=== PATIENT | female | born 1995 | race Caucasian/White ===

== ENCOUNTER 2017-02-01 21:42 | Emergency (ER) | payer OTHER ==
--- NOTE | 2017-02-01 22:25 | ERNOTE ---
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 SAYS SHE IS 12 WEEKS . STATES SHE HAD EPISODE OF VAGINAL BLEEDING AT 6 WEEKS THAT RESOLVED . SHE IS FOLLOWED BY SR CARRILLO. SHE HAS HAD PRIOR ULTRASOUND IN HIS OFFICE. SHE WAS TOLD IT WAS NORMAL. SHE HAS HAD NO CRAMPS OR CLOTS OR TISSUE PASSED. SHE IS , SAB 1. LAST PREG IN 2014. DENIES ANY MEDICAL PROBLEMS. Timing: Present: gone now Quality: Present: mild Onset Location: Present: vaginal Radiation: Present: none Activities at Onset: Present: none Sexual Hamel History: Present: single partner Review of Systems - Review of Systems Constitutional: Present: See HPI All Other Systems: All systems neg except as marked - Patient's Past Medical History Patient History - Cardiac/Respiratory: No pertinent hx Patient History - Cancer: No Hx of Cancer Patient History - Surgical Procedures: Cholecystectomy Patient History - Other: None LMP (females 10-50): G4, P2, SAB 1 LMP (Calendar): 11/09/16 - Family History Father Family History - Medical: Diabetes Type 2 - Social History Living Situations: home Smoking Status: Current every day smoker Patient requests Smoking Cessation Consult: No Initiate information on Smoking Cessation: No Alcohol Use: none Drug Use: marijuana - POSITIVWE SCREEN 12/29/2016 - Immunizations Immunizations Up to Date: Yes History of Influenza Vaccine: No Physical Exam - Physical Exam General Appearance: Present: wd/wn, alert, no apparent distress Gastrointestinal/Abdominal: Present: normal bowel sounds, nontender, nondistended, soft, no organomegaly Back Exam: Present: normal inspection, normal range of motion, no CVA tenderness , no vertebral tenderness Neurological Exam: Present: alert, oriented, normal mood/affect Skin Exam: Present: normal color, warm/dry Pelvic Exam: Present: other - THE PT HAS A SLIT LIKE OS WITH A SMALL AMOUNT OF REDDISH BROWN BLOOD IN VAGINA BUT NO BRIGHT RED BLOOD . AND NO TISSUE OR CLOTS. ED Progress - Date and Time Seen: Date and Time: 02/01/17 22:58 CONSULTED [facility] DR CARRILLO. HE COULD NOT REMEMBER PT'S OLD US RESULTS BUT WITH HER CURRENT FINDING DID NOT BELIEVE REPEAT US WAS NEEDED. HE WILL FOLLOW IN THE OFFICE. - Results and Orders Patient's Lab Results:: I have reviewed the patient's lab results. Results and Orders: LABS ARE NORMAL - Vital Signs Vital Signs: Vital Signs 02/01/17 21:45 Temperature 36.5 C Pulse Rate 90 Respiratory 18 Rate Blood Pressure 112/68 O2 Sat by Pulse 100 Oximetry - Progress/Reassessment Chief Complaint: Genitourinary Problem Progress:: Improved - SAYS ON A LITTLE SPOT OF BLOOD SINCE HERE. Departure Clinical Impression: Threatened miscarriage in early - Departure Disposition: Home Follow Up Needed Condition: Good Instructions: Threatened Miscarriage, [id number] Additional Instructions: YOUR DR IS AWARE OF THE BLEEDING AND FINDING OF HEART TONES. FOLLOW UP WITH THE OFFICE TO SEE IF OR WHEN HE WANT TO DO A RECHECK. Referrals: Sarwat Carrillo DO [Primary Care Provider] -
--- OUTSIDE RECORDS SUMMARY | 2017-02-01 22:33 | XMS REPORT | Continuity of Care Document ---
:1995 Author Organization [facility] ([facility]) Address [address] [address] Phone [phone] Care Team Providers Name Role Phone LeelaPanfilo ruiz Primary Care Provider [phone] Source Comments This disclosure is being made pursuant to the Care Everywhere program, applicable federal and state laws, and may not contain all informaitonavailable regarding this patient.[facility] ([facility]) Active Allergies and Adverse Reactions No Known Allergies Current Medications No known medications Active Problems Problem Noted Date Symptomatic cholelithiasis 07/27/2012 24 weeks gestation of 07/27/2012 Currently Estimated Date of Delivery Comments Yes Social History Tobacco Use Types Packs/Day Years Used Date Current Every Day Smoker Cigarettes 0.5 1 Alcohol Use Drinks/Week oz/Week Comments No Last Filed Vital Signs Vital Sign Reading Time Taken Blood Pressure 121/69 07/27/2012 1:15 PM CDT Pulse 80 07/27/2012 1:15 PM CDT Temperature 36.6 C (97.9 F) 07/27/2012 1:15 PM CDT Respiratory Rate - - Height 1.64 m (5' 4.57") 07/27/2012 1:15 PM CDT Weight 64.1 kg (141 lb 5 oz) 07/27/2012 1:15 PM CDT Body Mass Index 23.83 07/27/2012 1:15 PM CDT Oxygen Saturation - - Plan of Care Health Maintenance Due Date Last Done Comments Hepatitis B Vaccine (1 of 3 - Primary Series) 1995 HPV Vaccine (1 of 3 - Female/Unknown 3 Dose Series) 2006 Tdap Vaccine 2006 Meningococcal Vaccine (1 of 1) 2011 Cervical Cancer Screening 2013 Lipid Disorder Screening 2013 MMR Vaccine 2013 Td Vaccine 2013 Varicella Vaccine (1 of 2 - Adult - No Evidence of 2013 Immunity) Pneumococcal Vaccine (1 of 1 - PPSV23) 2014 Influenza Vaccine: Seasonal (#1) 06/02/2016 Results from Last 3 Months Not on file
[2017-02-01 22:49] LABS: Hematocrit 39.3 % (37.0-47.0); Hemoglobin 13.6 gm/dL (12.5-16.0); Mean Cell Volume 88.5 fl (78-100); Mean Corpuscular Hemoglobin 30.6 pg (27-31); Mean Corpuscular Hgb Conc 34.6 g/dl (32-36); Mean Platelet Volume 8.7 fl (6.0-9.5); Neutrophil # 5.1 K/mm3 (1.3-6.0); Neutrophil % 51.2 % (42-75.0); Platelet Count 314 K/mm3 (150-450); Red Blood Count 4.44 M/mm3 (4.2-5.4); Red Cell Distribution Width 11.3 % (11.5-14.0); White Blood Count 9.9 K/mm3 (4.0-10.5)
[2017-02-02 00:37] VITALS: BP 126/64
== END 2017-02-02 00:35 | disposition home or self-care (01) ==
LOC: ER 21:42
DX: O20.0 Threatened abortion (principal); Z3A.12 12 weeks gestation of pregnancy; F17.200 Nicotine dependence, unspecified, uncomplicated

== ENCOUNTER 2017-08-15 08:57 | Inpatient (IN) | payer OTHER ==
[2017-08-15] MEDS ORDERED: PENICILLIN G POTASSIUM 5 MILLIONUNT in DEXTROSE 5 % IN WATER 100 ML IV ONE ×2 (09:02)
[2017-08-15] MEDS ORDERED: RINGER'S SOLUTION,LACTATED 1,000 ML IV ONE (09:02)
[2017-08-15] MEDS ORDERED: OXYTOCIN/DEXTROSE 5%-WATER 30 UNITS/500 ML BAG IV ONE ×2 (09:02→14:34)
[2017-08-15] MEDS ORDERED: DEXTROSE 5%-LACTATED RINGERS 1,000 ML IV PRN (09:02)
[2017-08-15] MEDS ORDERED: LIDOCAINE HCL 50 ML VIAL PERI PRN (09:02)
[2017-08-15] MEDS ORDERED: FLU VACC QS2017-18(6MOS UP)/PF 60 MCG/0.5 ML SYRINGE IM ONE ×2 (09:07→19:13)
[2017-08-15 09:21] LABS: Cocaine Ur Negative (NEGATIVE); Urine Barbiturate Negative (NEGATIVE); Urine Benzodiazepines Negative (NEGATIVE); Urine Opiates Negative (NEGATIVE); Urine PCP Negative (NEGATIVE); Urine THC Negative (NEGATIVE)
[2017-08-15] MEDS ORDERED: ONDANSETRON HCL/PF 2 MG/ML VIAL IV PRN (10:03)
[2017-08-15] MEDS ORDERED: NALOXONE HCL 1 MG/1 ML SYRG IV PRN (10:03)
[2017-08-15] MEDS ORDERED: BUPIVACAINE HCL/0.9 % NACL/PF 250 ML EP PRN (10:03)
[2017-08-15] MEDS ORDERED: BUPIVACAINE HCL/PF 30 ML VIAL EP SCH (10:15)
--- NOTE | 2017-08-15 10:25 | OR ---
Anesthesia Procedure Note - Anesthesia Procedure Note Date of Service: 08/15/17 Narrative: Vital Signs - Last Taken Temp 36.9 C 08/15/17 10:22 Pulse 84 08/15/17 10:22 Resp 18 08/15/17 10:22 BP 129/76 08/15/17 10:22 Pulse Ox 99 08/15/17 10:22 08/15/17 10:24 ANESTHESIA PROCEDURE NOTE Date of Procedure: 08/15/2017. Time of procedure: 1005. Performed by: Niko Cervantes CRNA Platen Press Operator: None. Preprocedure diagnosis: Active labor. Post procedure diagnosis: Same. Procedure: Insertion of labor epidural. Indications: The patient is a 22 -year-old female in active labor requesting labor epidural for pain management. Findings: See below. Details of the procedure: The patient was placed in a sitting position. DuraPrep as well as Betadine swabs X3 was applied to the patient's back. Patient was then draped in a sterile fashion. Lidocaine 1% was infiltrated to the skin and subcutaneous tissues at the level of the L3-4 interspace. The epidural space was identified using a 18-gauge Tuohy needle with loss-of- resistance technique. Epidural catheter was inserted to a depth of 10 centimeters at skin. Negative test dose was elicited using 3 mL of 1.5% preservative-free lidocaine plus epinephrine 1 200,000. The epidural catheter was then taped and secured in place. A loading dose of 8 mL of 0.25% preservative-free bupivacaine was administered to the epidural catheter after negative aspiration for blood and CSF. EBL: Minimal. Fluids: N/A. Specimen: N/A. Post procedure condition: The patient tolerated the procedure well. No complications were noted. Thank you for this consultation. Niko Cervantes CRNA
--- NOTE | 2017-08-15 12:33 | PN ---
Progess Note - Interim Narrative: 08/15/17 12:31 Patient comfortable with epidural Vital signs stable. Pitocin at 3 mu/min. FHT: 120 baseline, reassuring Contractions q 1-2 min Cervix: 5/80/-2, AROM-light meconium Impression: Intrauterine at 39 weeks in labor. GBS positive-status post penicillin 1 dose, second dose hanging now Plan: Continue present plan. Notify religious studies professor of meconium-stained fluid.
[2017-08-15] MEDS ORDERED: PENICILLIN G POTASSIUM 2.5 MILLIONUNT in DEXTROSE 5 % IN WATER 100 ML IV SCH ×2 (13:03)
--- NOTE | 2017-08-15 14:32 | OR ---
Operative Report - Dictated Report Narrative: Indication: Recurrent late decelerations with poor maternal expulsive effort Pre Procedure Patient was counseled to the risk, benefits, and alternatives to operative vaginal delivery. All questions were answered. Patient consented to proceed with operative vaginal delivery. heart rate interpretation: Recurrent late decelerations, EFW 3100 g, station +3, Position of head WALKER, Anesthesia: epidural Cervix was completely dilated and effaced, maternal- size appropriate for application, bladder was emptied, flexion point identified, cup choice appropriate for application site, maternal tissue excluded from vacuum cup Procedure Total application time of the Kiwi Pro with Palm Pump was less than 30 seconds, maximum vacuum achieved was 500 mm Hg, number of pulls 1, number of involuntary releases 0, vacuum reduced between contractions, advancement in station with each pull, degree of rotation 0-45 Post Procedure Viable male born at 1415 on 08/15/2017 with Apgars 8 and 9, weighing 3095 g in WALKER position. Light meconium-stained fluid Cord gases not collected, Placenta spontaneously delivered, EBL less than 50 mL, , no injury, no shoulder dystocia History for Definition: * The number of deliveries resulting in a live the patient experienced prior to current hospitalization * The previous delivery of live twins or any live multiple gestation is considered one live event. *If primagravida or nulliparous is documented select zero for the number of previous live births. Live Events: 2
[2017-08-15] MEDS ORDERED: SENNOSIDES 8.6 MG TABLET PO PRN (14:34)
[2017-08-15] MEDS ORDERED: HYDROCORTISONE 30 APPL TUBE TP PRN (14:34)
[2017-08-15] MEDS ORDERED: BENZOCAINE/MENTHOL 81 SPRAY CAN TP PRN (14:34)
[2017-08-15] MEDS ORDERED: GLYCERIN/WITCH HAZEL LEAF 40 APPL BOX TP PRN (14:34)
[2017-08-15] MEDS ORDERED: BISACODYL 10 MG SUPP.RECT RC PRN (14:34)
[2017-08-15] MEDS: oxyCODONE HCL/ACETAMINOPHEN 1 TAB TABLET PO PRN ×3 (16:25→23:36)
[2017-08-15] MEDS: IBUPROFEN 800 MG TABLET PO PRN ×2 (16:25→23:34)
[2017-08-15] MEDS ORDERED: MISOPROSTOL 200 MCG TABLET PO SCH (16:30)
[2017-08-15] MEDS: DOCUSATE SODIUM 100 MG CAPSULE PO SCH (20:39)
[2017-08-16] MEDS: oxyCODONE HCL/ACETAMINOPHEN 1 TAB TABLET PO PRN ×6 (04:43→22:59)
[2017-08-16] MEDS: IBUPROFEN 800 MG TABLET PO PRN ×3 (08:10→22:59)
[2017-08-16] MEDS: DOCUSATE SODIUM 100 MG CAPSULE PO SCH ×3 (08:10→20:43)
[2017-08-16] MEDS: valACYclovir HCL 500 MG TABLET PO SCH (08:10)
--- NOTE | 2017-08-16 13:19 | PN ---
Subjective - Date and Time Seen Date: 08/16/17 Time: 13:19 Objective - Vitals Vitals: Last Vital Signs Temp 36.4 C L 08/16/17 08:32 Pulse 81 08/16/17 08:32 Resp 18 08/16/17 08:32 BP 123/65 08/16/17 08:32 Pulse Ox 94 08/16/17 08:32 Patient denies complaints. Lochia wnl Abdomen - soft, nontender Uterus - firm, at umbilicus - 1 No calf tenderness Impression: day #1 - s/p spontaneous vaginal delivery. Plan: Continue routine care Cauti Physician Documentation - Urinary Catheter Management Urethral (Raymond) Date of Insertion: 08/15/17 Time of Insertion: 10:35
[2017-08-17] MEDS: oxyCODONE HCL/ACETAMINOPHEN 1 TAB TABLET PO PRN ×3 (02:35→10:07)
[2017-08-17] MEDS: IBUPROFEN 800 MG TABLET PO PRN (07:10)
[2017-08-17 07:26] VITALS: BP 139/64
--- NOTE | 2017-08-17 09:51 | PN ---
Subjective - Date and Time Seen Date: 08/17/17 Time: 09:50 Objective - Vitals Vitals: Last Vital Signs Temp 36.9 C 08/17/17 07:26 Pulse 75 08/17/17 07:26 Resp 20 08/17/17 07:26 BP 139/64 08/17/17 07:26 Pulse Ox 98 08/17/17 07:26 Patient denies complaints. Lochia wnl Abdomen - soft, nontender Uterus - firm, at umbilicus - 2 No calf tenderness Impression: day #2 - s/p spontaneous vaginal delivery. Plan: Routine discharge instructions Cauti Physician Documentation - Urinary Catheter Management Urethral (Raymond) Date of Insertion: 08/15/17 Time of Insertion: 10:35
[2017-08-17] MEDS: DOCUSATE SODIUM 100 MG CAPSULE PO SCH (10:08)
[2017-08-17] MEDS: valACYclovir HCL 500 MG TABLET PO SCH (10:58)
== END 2017-08-17 10:20 | disposition home or self-care (01) | DRG 775 ==
LOC: OB 08:57
PROVIDERS: ADMIT Obstetrics & Gynecology; ATTEND Obstetrics & Gynecology
PROC: 10D07Z6 Extraction of Products of Conception, Vacuum, Via Natural or Artificial Opening (ICD-10-PCS; principal; 2017-08-15)
PROC: 10907ZC Drainage of Amniotic Fluid, Therapeutic from Products of Conception, Via Natural or Artificial Opening (ICD-10-PCS; 2017-08-15)
PROC: 4A1HXCZ Monitoring of Products of Conception, Cardiac Rate, External Approach (ICD-10-PCS; 2017-08-15)
PROC: 00HU33Z Insertion of Infusion Device into Spinal Canal, Percutaneous Approach (ICD-10-PCS; 2017-08-15)
DX: O99.824 Streptococcus B carrier state complicating childbirth (principal); O99.334 Smoking (tobacco) complicating childbirth; O99.324 Drug use complicating childbirth; F12.90 Cannabis use, unspecified, uncomplicated; O76 Abnormality in fetal heart rate and rhythm complicating labor and delivery; O77.0 Labor and delivery complicated by meconium in amniotic fluid; Z3A.39 39 weeks gestation of pregnancy; Z37.0 Single live birth; Z23 Encounter for immunization
CPT/HCPCS: 59025; 80307; 88307; 90686; G0008

== ENCOUNTER 2018-08-10 15:38 | Inpatient (IN) ==
[2018-08-10] MEDS ORDERED: PENICILLIN G POTASSIUM 5 MILLIONUNT in DEXTROSE 5 % IN WATER 100 ML IV ONE ×2 (15:44)
[2018-08-10] MEDS ORDERED: ONDANSETRON HCL/PF 2 MG/ML VIAL IV PRN ×2 (15:44→17:13)
[2018-08-10] MEDS ORDERED: OXYTOCIN 30 UNITS in NORMAL SALINE 500 ML IV ONE (15:44)
[2018-08-10] MEDS ORDERED: RINGER'S SOLUTION,LACTATED 1,000 ML IV ONE (15:44)
[2018-08-10] MEDS ORDERED: DEXTROSE 5%-LACTATED RINGERS 1,000 ML IV PRN (15:44)
--- NOTE | 2018-08-10 16:45 | HP ---
Chief Complaint - Chief Complaint Date of Service: 08/10/18 Time of Service: 16:33 Chief Complaint: contractions History of Present Illness: 23 yo at 38 4/7 wks presents to L&D complaining of increased frequency and intensity of contractions. This complicated by anxiety/depression, HSV carrier (no lesions, on prophylactic Valtrex 1000mg/d), late PNC, smoker, DPS via b/l salpingectomy. Rh positive Rubella immune GBS positive Medical History (Last Reviewed 08/10/18 @ 13:04 by Chris Valdez) Depression HPV in female HSV (herpes simplex virus) infection Onset Date: ~01/26/17 Shingles Cholelithiasis Onset Date: ~11/24/13 History of chlamydia infection Onset Date: ~2008 Surgical History: Surgical History (Last Reviewed 08/10/18 @ 13:04 by Chris Valdez) Hx of cholecystectomy Onset Date: ~04/25/14 Family History: Family History (Last Reviewed 08/10/18 @ 13:04 by Chris Valdez) Father Diabetes Mother Asthma Grandfather Diabetes Grandmother Brain aneurysm Social History: Preferred Language Burundian Review Of Systems (GEN) - Review of Systems EENTM: Present: No Symptoms Reported Respiratory: Present: No Symptoms Reported Cardiac: Present: No Symptoms Reported Abdominal: Present: Other - contractions Genitourinary: Present: Frequency, Other Musculoskeletal: Present: Back Pain Neurological: Present: Headache, Anxiety, Depressed Skin: Present: No Symptoms Reported Endocrine: Present: No Symptoms Reported Immunizations: IMMUNIZATION HX Immunizations Up to Date Yes History of Influenza Vaccine No Hx Pneumococcal Vaccination No Allergies/Adverse Reactions: Allergies Allergy/AdvReac Type Severity Reaction Status Date / Time No Known Allergies Allergy Verified 08/10/18 15:57 Home Medications: HOME MEDICATIONS hydroxyzine pamoate 25 mg capsule 25 mg PO Q4H PRN #30 cap 06/29/18 [Last Taken Unknown] valacyclovir 1 gram tablet 1,000 mg PO DAILY #30 tab 06/29/18 [Last Taken 08/09/18] escitalopram 10 mg tablet 20 mg PO DAILY #60 tab 08/10/18 [Last Taken Unknown] Exam - Exam Vital Signs: Vital Signs - Last Taken Temp 36.0 C 08/10/18 15:54 Pulse 91 08/10/18 15:54 Resp 16 08/10/18 15:54 BP 132/80 08/10/18 15:54 Pulse Ox 96 08/10/18 15:54 Constitutional: Present: Alert, Oriented x3, Cooperative, Mild distress ENT Exam: Present: hearing grossly normal Neck: Present: supple, trachea midline Breasts: Present: Exam deferred Respiratory: Present: lungs clear, no respiratory distress Cardiovascular/Chest: Present: normal peripheral pulses, regular rate, rhythm, no edema Abdomen: Present: soft, nontender, no rebound tenderness, other - gravid /Rectal: Present: Other - 4/50/-2 Extremity: Present: non-tender, no pedal edema, no calf tenderness Skin Exam: Present: normal color, warm/dry, no cyanosis Lymphatic: Present: no adenopathy Neurologic: Present: normal mood/affect, oriented x 3 Appearance: Present: appropriate appearance, appropriate insight Eye contact: Present: cooperative, good eye contact, normal speech Thoughts: Present: normal thought pattern Assessment/Plan - Assessment/Plan (1) Labor established Problem: Acute (2) Group B streptococcal carriage complicating Problem: Chronic (3) HSV antigen DIF positive Problem: Inactive
[2018-08-10] MEDS ORDERED: NALOXONE HCL 1 MG/1 ML SYRG IV PRN (17:13)
[2018-08-10] MEDS ORDERED: BUPIVACAINE HCL/0.9 % NACL/PF 250 ML EP PRN (17:13)
--- NOTE | 2018-08-10 17:14 | ANES ---
Anesthesia Pre Procedure Eval Vitals/Labs: Last Vital Signs Temp 36.0 C 08/10/18 15:54 Pulse 91 08/10/18 15:54 Resp 16 08/10/18 15:54 BP 132/80 08/10/18 15:54 Pulse Ox 96 08/10/18 15:54 HOME MEDICATIONS hydroxyzine pamoate 25 mg capsule 25 mg PO Q4H PRN #30 cap 06/29/18 [Last Taken Unknown] valacyclovir 1 gram tablet 1,000 mg PO DAILY #30 tab 06/29/18 [Last Taken 08/09/18] escitalopram 10 mg tablet 20 mg PO DAILY #60 tab 08/10/18 [Last Taken Unknown] Allergies/Adverse Reactions: Allergies Allergy/AdvReac Type Severity Reaction Status Date / Time No Known Allergies Allergy Verified 08/10/18 15:57 - Planned Procedure Planned Procedure: ACTIVE LABOR Medication List Reviewed:: Yes Allergies Verified: Yes Medical History (Last Reviewed 08/10/18 @ 17:11 by Tucker Fischer CRNA) Depression HPV in female HSV (herpes simplex virus) infection Onset Date: ~01/26/17 Shingles Cholelithiasis Onset Date: ~11/24/13 History of chlamydia infection Onset Date: ~2008 Surgical History (Last Reviewed 08/10/18 @ 17:11 by Tucker Fischer CRNA) Hx of cholecystectomy Onset Date: ~04/25/14 Family History (Last Reviewed 08/10/18 @ 17:12 by Tucker Fischer CRNA) Father Diabetes Mother Asthma Grandfather Diabetes Grandmother Brain aneurysm - Family Anesthesia History Family History:: no untoward family reactions to anesthesia, no familial bleeding tendencies, no family history of clotting disorders, no family history of premature - Airway/Neck/Teeth Within Normal Limits:: Yes Teeth Condition: Intact Neck Exam: non-tender, full range of motion Mallampatti Score: 2 Thyromental (T-M) distance: > 6 cm Mandibulo Hyoid distance: > 3 cm - Respiratory Respiratory: chest non-tender, lungs clear Smoking Status: Never smoker Sleep Apnea currently treated: No Sleep Apnea by current assessment: No - Cardiovascular Patient History - Cardiac/Respiratory: No pertinent hx Tolerates Activity: Fair Heart Sounds: S1 & S2, Regular - Anesthesia Assessment and Plan ASA Class: PS, II, E Anesthesia Type Plan: Epidural - CSE for labor analgesia Planned difficult intubation/equipment available: No
[2018-08-10] MEDS ORDERED: fentaNYL CITRATE/PF 50 MCG/ML AMPUL IT SCH (17:15)
--- NOTE | 2018-08-10 17:44 | ANES ---
Post Anesthesia Discharge - Transfer of Care Transfer of Care handoff given to nurse: Yes - Discharge from PACU Discharge from PACU when meets criteria: Yes - Comfortable now
--- NOTE | 2018-08-10 17:47 | ANES ---
Anesthesia Procedure Note Procedure Note: ANESTHESIA PROCEDURE NOTE Date of Procedure: 08/10/2018 Time of procedure: 1720. Performed by: AGNES Dumont CRNA, MSN Business Operations Coordinator: Debra Montana RN. Preprocedure diagnosis: Active labor, labor pain. Post procedure diagnosis: Same. Procedure:Epidural for labor analgesia L3 4. Indications: Labor pain. Findings: See below. Details of the procedure: The patient was placed on the side of the bed in sitting positionand prepped with DuraPrep then draped in a sterile fashion. Lidocaine 1% was infiltrated to the skin and subcutaneous tissues at the level of the L3 4 interspace. An 18-gauge Touhy needle was used to approach the epidural space with loss of resistance technique. Once loss of resistance was achieved a 27-gauge spinal needle was passed through the epidural needle and CSF was contacted. After CSF returned, 20 mcg of fentanyl was injected in the spinal needle was removed the epidural catheter was then threaded approximately 4 cm in the epidural needle was removed. The catheter was taped in place and after careful aspiration 3 mL of 1.5% lidocaine with 1-200,000 epinephrine was injected without change in maternal heart rate or sensorium. . EBL: Minimal. Fluids: N/A. Specimen: N/A. Post procedure condition: The patient tolerated the procedure well with good relief. No complications were noted. Thank you for this consultation. Tucker Fischer CRNA, MSN
--- NOTE | 2018-08-10 18:03 | ANES ---
Post Anesthesia Assessment - Vital Signs Vitals: Last Vital Signs Temp 36.2 C 08/10/18 17:44 Pulse 72 08/10/18 17:44 Resp 16 08/10/18 17:44 BP 129/79 08/10/18 17:44 Pulse Ox 100 08/10/18 17:44 Airway Patency: Normal - Mental Status Level Of Consciousness: Awake, Alert - Pain Level Pain Score: 0 - N/V Assessment Nausea/Vomiting Presence: None Dehydration:: No
[2018-08-10 19:17] LABS: Cocaine Ur Negative (NEGATIVE); Urine Barbiturate Negative (NEGATIVE); Urine Benzodiazepines Negative (NEGATIVE); Urine Opiates Negative (NEGATIVE); Urine PCP Negative (NEGATIVE); Urine THC Negative (NEGATIVE)
[2018-08-10] MEDS ORDERED: PENICILLIN G POTASSIUM 2.5 MILLIONUNT in DEXTROSE 5 % IN WATER 100 ML IV SCH ×2 (19:46)
--- NOTE | 2018-08-10 19:53 | PN ---
Progess Note - Interim Date: 08/10/18 Time: 19:51 Narrative: 08/10/18 19:51 Patient comfortable with epidural Vital signs stable. Pitocin at 3 mu/min. FHT: 140 baseline, reassuring Contractions q 2-3 min Cervix: 8/75/-2, AROM-clear Impression: Intrauterine at 38 4/7 weeks in labor. GBS carrier - status post 2 doses of IV penicillin Plan: Continue present plan. Anticipate normal spontaneous vaginal delivery within the next couple hours
[2018-08-10] MEDS ORDERED: HYDROCORTISONE 30 APPL TUBE TP PRN (21:53)
[2018-08-10] MEDS ORDERED: GLYCERIN/WITCH HAZEL LEAF 40 APPL BOX TP PRN (21:53)
[2018-08-10] MEDS ORDERED: BISACODYL 10 MG SUPP.RECT RC PRN (21:53)
[2018-08-10] MEDS ORDERED: SENNOSIDES 8.6 MG TABLET PO PRN (21:53)
[2018-08-10] MEDS ORDERED: OXYTOCIN/DEXTROSE 5%-WATER 30 UNITS/500 ML BAG IV ONE (21:53)
[2018-08-10] MEDS ORDERED: oxyCODONE HCL/ACETAMINOPHEN 1 TAB TABLET PO PRN (21:53)
[2018-08-10] MEDS ORDERED: BENZOCAINE/MENTHOL 81 SPRAY CAN TP PRN (21:53)
[2018-08-10] MEDS ORDERED: hydrOXYzine PAMOATE 25 MG CAPSULE PO PRN (21:57)
--- NOTE | 2018-08-10 22:00 | OR ---
Operative Report - Dictated Report Narrative: Spontaneous vaginal delivery of viable male at 2136 on 08/10/2018 with Apgars 8 and 9, weighing 3041 g and WALEKR position with tight nuchal cord 1. Cord clamping delayed approximately 1 minute Placenta delivered complete, intact, with three vessel cord Estimated blood loss: less than 50 ml Anesthesia: epidural Lacerations: None History for MU Definition: * The number of deliveries resulting in a live the patient experienced prior to current hospitalization * The previous delivery of live twins or any live multiple gestation is considered one live event. *If primagravida or nulliparous is documented select zero for the number of previous live births. Live Events: 3
[2018-08-10] MEDS: oxyCODONE HCL/ACETAMINOPHEN 1 TAB TABLET PO PRN (22:38)
[2018-08-10] MEDS: IBUPROFEN 800 MG TABLET PO PRN (22:38)
[2018-08-11] MEDS: oxyCODONE HCL/ACETAMINOPHEN 1 TAB TABLET PO PRN ×7 (01:41→22:01)
[2018-08-11] MEDS: DOCUSATE SODIUM 100 MG CAPSULE PO SCH ×3 (02:58→20:48)
[2018-08-11] MEDS: IBUPROFEN 800 MG TABLET PO PRN ×3 (04:48→17:05)
[2018-08-11] MEDS: ESCITALOPRAM OXALATE 10 MG TAB PO SCH (10:19)
--- NOTE | 2018-08-11 11:41 | PN ---
Subjective - Date and Time Seen Date: 08/11/18 Time: 11:41 Objective - Vitals Vitals: Last Vital Signs Temp 36.2 C 08/11/18 08:28 Pulse 70 08/11/18 08:28 Resp 14 08/11/18 08:28 BP 137/78 08/11/18 08:28 Pulse Ox 98 08/11/18 08:28 Patient denies complaints. Lochia wnl Abdomen - soft, nontender Uterus - firm, at umbilicus - 1 No calf tenderness Impression: day #1 - s/p spontaneous vaginal delivery. Plan: Continue routine care Cauti Physician Documentation - Urinary Catheter Management Urethral (Raymond) Date of Insertion: 08/10/18 Time of Insertion: 18:00 Assessment/Plan - Problems/Diagnosis (1) Labor established Problem: Acute (2) Group B streptococcal carriage complicating Problem: Chronic (3) HSV antigen DIF positive Problem: Inactive
[2018-08-12] MEDS: IBUPROFEN 800 MG TABLET PO PRN ×2 (01:27→08:50)
[2018-08-12] MEDS: oxyCODONE HCL/ACETAMINOPHEN 1 TAB TABLET PO PRN ×3 (01:27→08:52)
--- NOTE | 2018-08-12 08:50 | PN ---
Subjective - Date and Time Seen Date: 08/12/18 Time: 08:50 Objective - Vitals Vitals: Last Vital Signs Temp 36.4 C 08/12/18 06:30 Pulse 64 08/12/18 06:30 Resp 18 08/12/18 06:30 BP 129/80 08/12/18 06:30 Pulse Ox 98 08/12/18 06:30 Patient denies complaints. Lochia wnl Abdomen - soft, nontender Uterus - firm, at umbilicus - 2 No calf tenderness Impression: day #2 - s/p spontaneous vaginal delivery. Plan: Routine discharge instructions Cauti Physician Documentation - Urinary Catheter Management Urethral (Raymond) Date of Insertion: 08/10/18 Time of Insertion: 18:00 Assessment/Plan - Problems/Diagnosis (1) Labor established Problem: Acute (2) Group B streptococcal carriage complicating Problem: Chronic (3) HSV antigen DIF positive Problem: Inactive
[2018-08-12] MEDS: DOCUSATE SODIUM 100 MG CAPSULE PO SCH (08:51)
[2018-08-12] MEDS: ESCITALOPRAM OXALATE 10 MG TAB PO SCH (08:53)
[2018-08-12 12:27] VITALS: BP 138/87
== END 2018-08-12 13:30 | disposition home or self-care (01) | DRG 806 ==
LOC: OB 15:38
PROVIDERS: ADMIT Obstetrics & Gynecology; ATTEND Obstetrics & Gynecology
CPT/HCPCS: 59025; 80307; G0479